=== PATIENT | female | born 1980 | race Caucasian/White ===

== ENCOUNTER 2020-02-14 15:31 | Emergency (ER) | payer MEDICAID ==
[~2020-02-14] VITALS: Ht 160 cm; Wt 81.8 kg
[~2020-02-14 15:31] MED LIST: HYDR-4383 PO; KETO10TA2 PO
[2020-02-14] MEDS ORDERED: TETanus/Pertussis (Acell)/Diphther VAC/PF (Tdap-Adult) 0.5ml syringe IMVAC ONE (17:15)
[2020-02-14] MEDS ORDERED: rabies vaccine (PCEC)/PF 2.5 unit kit IMVAC ONE (17:15)
[2020-02-14] MEDS ORDERED: rabies immune globulin/PF 150 unit/ml inj IMVAC ONE (17:15)
[2020-02-14] MEDS ORDERED: AMOX-580 PO (17:53)
[2020-02-14 18:41] VITALS: BP 110/60
== END 2020-02-14 18:10 | disposition home or self-care (01) ==
LOC: ER 15:31
DX: S61.431A Puncture wound without foreign body of right hand, initial encounter (principal); M79.601 Pain in right arm; K21.9 Gastro-esophageal reflux disease without esophagitis; Z98.890 Other specified postprocedural states; Z79.2 Long term (current) use of antibiotics; Z79.899 Other long term (current) drug therapy; W55.01XA Bitten by cat, initial encounter; Y93.89 Activity, other specified; Y92.89 Other specified places as the place of occurrence of the external cause; Y99.8 Other external cause status
CPT/HCPCS: 90375; 90471; 90472; 90675; 90715; 96372; 99284

== ENCOUNTER 2023-11-30 08:48 | Emergency (ER) | payer MEDICAID, OTHER ==
[~2023-11-30] VITALS: Ht 160 cm; Wt 87.5 kg
[~2023-11-30 08:48] MED LIST changes: +IBUP-1985 PO
[2023-11-30 09:19] LABS: BASOPHILS % (AUTO) 0.4 % (0-1); EOSINOPHILS # (AUTO) 0.1 X10'3 (0-0.9); EOSINOPHILS % (AUTO) 1.8 % (0-6); HEMATOCRIT 39.9 % (35.0-45.0); HEMOGLOBIN 13.3 g/dl (12.0-16.0); LYMPHOCYTES # (AUTO) 1.2 X10'3 (1.1-4.8); LYMPHOCYTES % (AUTO) 22.6 % (21-51); MEAN CORPUSCULAR HGB CONC 33.4 g/dL (33.0-36.5); MEAN CORPUSCULAR VOLUME 83.7 FL (78-98); MEAN PLATELET VOLUME 8.3 FL (7.4-10.4); MONOCYTES # (AUTO) 0.2 X10'3 (0-0.9); MONOCYTES % (AUTO) 4.5 % (2-12); NEUTROPHILS # (AUTO) 3.8 X10'3 (1.8-7.7); NEUTROPHILS % (AUTO) 70.7 % (42-75); PLATELET COUNT 190 X10'3 (140-440); RED BLOOD COUNT 4.77 X10'6 (4.20-5.60); RED CELL DISTRIBUTION WIDTH 13.6 % (11.5-14.5); WHITE BLOOD COUNT 5.4 X10'3 (4.5-11.0)
[2023-11-30 09:41] LABS: ALANINE AMINOTRANSFERASE 13 U/L (12-78); ALBUMIN 3.1 G/DL (3.4-5.0); ALBUMIN/GLOBULIN RATIO 0.9 (1.1-1.5); ALKALINE PHOSPHATASE 65 IU/L (46-116); ANION GAP 7 (8-16); ASPARTATE AMINO TRANSFERASE 14 U/L (10-37); BILIRUBIN,TOTAL 0.4 MG/DL (0.1-1.0); BLOOD UREA NITROGEN 11 MG/DL (7-18); BUN/CREATININE RATIO 12.8 (10.0-20.0); CALCIUM 8.1 MG/DL (8.5-10.1); CHLORIDE 105 MMOL/L (99-107); CREATININE 0.86 MG/DL (0.40-0.90); GLUCOSE 145 MG/DL (70-104); POTASSIUM 3.9 MMOL/L (3.5-5.1); SODIUM 139 MMOL/L (135-145); TOTAL CARBON DIOXIDE 27.5 MMOL/L (24-32); TOTAL PROTEIN 6.7 G/DL (6.4-8.2); eCRCL 70 ML/MIN; eGFR 72 ML/MIN
[2023-11-30 09:43] LABS: PRO BRAIN NATRIURETIC PEPTIDE 85 PG/ML (0-125)
[2023-11-30] MEDS ORDERED: VARE1TAB29 PO (14:22)
[2023-11-30 14:55] VITALS: BP 103/59; PULSE 48; RESP 16; TEMP 98; O2SAT 99
== END 2023-11-30 14:59 | disposition home or self-care (01) ==
LOC: ER 08:49
DX: R07.89 Other chest pain (principal); K21.9 Gastro-esophageal reflux disease without esophagitis; Z79.899 Other long term (current) drug therapy
CPT/HCPCS: 36415; 71045; 80053; 83880; 84484; 85025; 93005; 99285

== ENCOUNTER 2023-12-06 16:40 | Emergency (ER) | payer MEDICAID ==
[~2023-12-06] VITALS: Ht 160 cm; Wt 88.3 kg
[~2023-12-06 16:40] MED LIST changes: +VARE1TAB29 PO
[2023-12-06 17:00] VITALS: TEMP 97
[2023-12-06 17:21] VITALS: BP 97/67; PULSE 65; RESP 13; O2SAT 97
[2023-12-06 17:29] LABS: HEMOGLOBIN 12.6 g/dl (12.0-16.0); WHITE BLOOD COUNT 6.8 X10'3 (4.5-11.0)
[2023-12-06 17:34] LABS: BASOPHILS % (AUTO) 0.3 % (0-1); EOSINOPHILS # (AUTO) 0.1 X10'3 (0-0.9); EOSINOPHILS % (AUTO) 1.6 % (0-6); HEMATOCRIT 37.6 % (35.0-45.0); LYMPHOCYTES # (AUTO) 1.9 X10'3 (1.1-4.8); MEAN CORPUSCULAR HEMOGLOBIN 28.3 PG (27.0-31.0); MEAN CORPUSCULAR HGB CONC 33.6 g/dL (33.0-36.5); MEAN CORPUSCULAR VOLUME 84.1 FL (78-98); MEAN PLATELET VOLUME 8.6 FL (7.4-10.4); MONOCYTES # (AUTO) 0.3 X10'3 (0-0.9); MONOCYTES % (AUTO) 4.4 % (2-12); NEUTROPHILS # (AUTO) 4.5 X10'3 (1.8-7.7); NEUTROPHILS % (AUTO) 65.7 % (42-75); PLATELET COUNT 196 X10'3 (140-440); RED BLOOD COUNT 4.47 X10'6 (4.20-5.60)
[2023-12-06 17:54] LABS: ALANINE AMINOTRANSFERASE 18 U/L (12-78); ALBUMIN 3.3 G/DL (3.4-5.0); ALKALINE PHOSPHATASE 62 IU/L (46-116); ANION GAP 8 (8-16); ASPARTATE AMINO TRANSFERASE 14 U/L (10-37); BILIRUBIN,TOTAL 0.3 MG/DL (0.1-1.0); BLOOD UREA NITROGEN 13 MG/DL (7-18); BUN/CREATININE RATIO 17.8 (10.0-20.0); CALCIUM 8.4 MG/DL (8.5-10.1); CHLORIDE 104 MMOL/L (99-107); CREATININE 0.73 MG/DL (0.40-0.90); GLUCOSE 104 MG/DL (70-104); POTASSIUM 3.9 MMOL/L (3.5-5.1); SODIUM 139 MMOL/L (135-145); TOTAL CARBON DIOXIDE 27.1 MMOL/L (24-32); TOTAL PROTEIN 6.7 G/DL (6.4-8.2); eCRCL 82 ML/MIN; eGFR 87 ML/MIN
[2023-12-06 17:56] LABS: LIPASE 20 U/L (16-77); MAGNESIUM 1.9 MG/DL (1.5-2.4); PRO BRAIN NATRIURETIC PEPTIDE 42 PG/ML (0-125)
[2023-12-06 17:56] LABS: BILIRUBIN,URINE NEGATIVE (Neg); CLARITY,URINE SLIGHTLY CLOUDY (Clear); COLOR,URINE YELLOW (Yellow); GLUCOSE, URINE NEGATIVE (Neg); KETONES,URINE NEGATIVE (Neg); LEUKOCYTE ESTERASE ,URINE NEGATIVE (Neg); NITRITES, URINE NEGATIVE (Neg); OCCULT BLOOD,URINE SMALL (Neg); PROTEIN,URINE NEGATIVE (Neg); UROBILINOGEN,URINE 0.2 E.U/dL (0.2-1.0)
[2023-12-06 17:57] LABS: URINE HCG NEGATIVE (NEG)
[2023-12-06 18:09] LABS: UA COLLECTION TYPE CLN CATCH MIDSTREAM
[2023-12-06 18:10] LABS: RBC,URINE TNTC /HPF (0-2); SQUAMOUS EPITHELIAL CELL,UR MODERATE /LPF (FEW)
[2023-12-06 18:11] LABS: BACTERIA,URINE FEW /HPF (Neg); WBC,URINE 0-4 /HPF (0-4)
[2023-12-06 18:12] LABS: MUCUS STRANDS FEW /LPF (Neg)
[2023-12-06] MEDS ORDERED: ALBU8HFA INH (18:25)
[2023-12-06] MEDS ORDERED: CETI10CA PO (18:25)
== END 2023-12-06 18:32 | disposition home or self-care (01) ==
LOC: ER 16:41
DX: R07.89 Other chest pain (principal); K21.9 Gastro-esophageal reflux disease without esophagitis; Z79.899 Other long term (current) drug therapy; Z79.2 Long term (current) use of antibiotics; Z98.890 Other specified postprocedural states
CPT/HCPCS: 36415; 71045; 80053; 81001; 81025; 83690; 83735; 83880; 84484; 85025; 87210; 93005; 99285

== ENCOUNTER 2024-10-04 13:32 | Emergency (ER) | payer BC, MEDICAID ==
[~2024-10-04] VITALS: Ht 160 cm; Wt 87.4 kg
[~2024-10-04 13:32] MED LIST changes: +CETI10CA PO
[2024-10-04 13:39] VITALS: BP 118/46; PULSE 98; RESP 16; TEMP 98.5; O2SAT 98
[2024-10-04 14:10] LABS: BILIRUBIN,URINE NEGATIVE (Neg); CLARITY,URINE SLIGHTLY CLOUDY (Clear); COLOR,URINE YELLOW (Yellow); GLUCOSE, URINE NEGATIVE (Neg); KETONES,URINE NEGATIVE (Neg); LEUKOCYTE ESTERASE ,URINE NEGATIVE (Neg); NITRITES, URINE POSITIVE (Neg); OCCULT BLOOD,URINE NEGATIVE (Neg); PROTEIN,URINE NEGATIVE (Neg); UROBILINOGEN,URINE 0.2 E.U/dL (0.2-1.0)
[2024-10-04 14:13] LABS: URINE HCG NEGATIVE (NEG)
[2024-10-04 14:26] LABS: UA COLLECTION TYPE CLN CATCH MIDSTREAM
[2024-10-04 14:27] LABS: BACTERIA,URINE 1+ /HPF (Neg); MUCUS STRANDS FEW /LPF (Neg); RBC,URINE NONE SEEN /HPF (0-2); SQUAMOUS EPITHELIAL CELL,UR MODERATE /LPF (FEW); WBC,URINE NONE SEEN /HPF (0-4)
[2024-10-04 14:43] LABS: BASOPHILS % (AUTO) 0.2 % (0-1); EOSINOPHILS % (AUTO) 1.2 % (0-6); HEMATOCRIT 37.6 % (35.0-45.0); HEMOGLOBIN 12.6 g/dl (12.0-16.0); LYMPHOCYTES # (AUTO) 0.3 X10'3 (1.1-4.8); LYMPHOCYTES % (AUTO) 8.4 % (21-51); MEAN CORPUSCULAR HEMOGLOBIN 28.2 PG (27.0-31.0); MEAN CORPUSCULAR HGB CONC 33.5 g/dL (33.0-36.5); MEAN CORPUSCULAR VOLUME 84.1 FL (78-98); MEAN PLATELET VOLUME 8.5 FL (7.4-10.4); MONOCYTES # (AUTO) 0.2 X10'3 (0-0.9); MONOCYTES % (AUTO) 5.1 % (2-12); NEUTROPHILS # (AUTO) 3.2 X10'3 (1.8-7.7); NEUTROPHILS % (AUTO) 85.1 % (42-75); PLATELET COUNT 118 X10'3 (140-440); RED BLOOD COUNT 4.47 X10'6 (4.20-5.60); RED CELL DISTRIBUTION WIDTH 13.9 % (11.5-14.5); WHITE BLOOD COUNT 3.7 X10'3 (4.5-11.0)
[2024-10-04 14:50] LABS: HCG SERUM QL NEGATIVE
[2024-10-04 14:55] LABS: ALANINE AMINOTRANSFERASE 19 U/L (12-78); ALBUMIN 3.8 G/DL (3.4-5.0); ALBUMIN/GLOBULIN RATIO 1.4 (1.1-1.5); ALKALINE PHOSPHATASE 64 IU/L (46-116); ANION GAP 5 (8-16); ASPARTATE AMINO TRANSFERASE 12 U/L (10-37); BILIRUBIN,TOTAL 0.4 MG/DL (0.1-1.0); BLOOD UREA NITROGEN 13 MG/DL (7-18); BUN/CREATININE RATIO 19.1 (10.0-20.0); CALCIUM 8.3 MG/DL (8.5-10.1); CHLORIDE 107 MMOL/L (99-107); CREATININE 0.68 MG/DL (0.40-0.90); GLUCOSE 144 MG/DL (70-104); LIPASE 18 U/L (16-77); POTASSIUM 4.1 MMOL/L (3.5-5.1); SODIUM 143 MMOL/L (135-145); TOTAL CARBON DIOXIDE 30.6 MMOL/L (24-32); TOTAL PROTEIN 6.5 G/DL (6.4-8.2); eCRCL 87 ML/MIN; eGFR > 90 ML/MIN
[2024-10-04] MEDS ORDERED: LIDO700A32 TOP (16:14)
[2024-10-04] MEDS ORDERED: NITR100C6 PO (16:14)
[2024-10-04] MEDS ORDERED: CYCL-1 PO (16:14)
[2024-10-04] MEDS: ketorolac trometh 30MG/ML vial 30 MG/ML VIAL IM ONE (16:31)
[2024-10-04] MEDS: dexamethasone sod phosphate 10mg/ml inj IM STA (16:31)
== END 2024-10-04 16:39 | disposition home or self-care (01) ==
LOC: ER 13:33
DX: N39.0 Urinary tract infection, site not specified (principal); K21.9 Gastro-esophageal reflux disease without esophagitis; Z79.1 Long term (current) use of non-steroidal anti-inflammatories (NSAID); Z79.899 Other long term (current) drug therapy; Z98.890 Other specified postprocedural states
CPT/HCPCS: 36415; 74176; 80053; 81001; 81025; 83690; 84703; 85025; 87088; 96372; 99285; J1100; J1885

== ENCOUNTER 2025-03-27 07:46 | Emergency (ER) | payer BC, MEDICAID ==
[~2025-03-27] VITALS: Ht 160 cm; Wt 86.0 kg
[~2025-03-27 07:46] MED LIST changes: +CYCL-1 PO; -IBUP-1985 PO; +IBUP600T52 PO; +LIDO-52 TOP; +NITR100C6 PO
--- NOTE | 2025-03-27 08:42 | Physician Documentation ---
HPI ~ General Chief Complaint: Tooth Problem Stated Complaint: INFECTED TOOTH Time Seen by MD: 08:42 Primary Medical Doctor: loli trevino History of Present Illness HPI Comment 45-year-old female with a history of dental issues, is currently seeing a dentist but does not have another appointment until May. She presents due to complaints of left upper dental pain with facial swelling. No chills or fever, but does feel overall unwell. Medication Reconciliation Allergies: Coded Allergies: No Known Allergies (Unverified , 02/03/10) Scheduled Amox Tr/Potassium Clavulanate 875/125 MG (Augmentin 875/125 MG), 1 TAB PO Q12H Cetirizine Hcl (Zyrtec), 1 CAP PO DAILY Cyclobenzaprine* (Cyclobenzaprine*), 1 TAB PO HS Hydrocodone/Acetaminophen ([place] 5-325 Tablet), 1 TAB PO TID PRN Ibuprofen (Ibuprofen), 1 TAB PO Q8H Ketorolac Tromethamine (Ketorolac Tromethamine), 1 TAB PO Q6H PRN Lidocaine (Lidoderm), 1 PATCH TOP DAILY Naproxen (Naproxen), 1 TAB PO Q12H Nitrofurantoin Monohyd/M-Cryst (Macrobid 100 mg Capsule), 1 CAP PO Q12H Varenicline Tartrate (Varenicline), 0.5 MG PO BID Scheduled PRN Hydrocodone Bit/Acetaminophen (Hydrocodon-Acetaminophen 5-325), 1 TAB PO TID PRN PRN for pain Past Medical History Past Medical History: GERD Past Surgical History: Alcohol Use: None Drug Use: none Lives with: Family Lives In: Home Occupation: employed Review of Systems ROS As stated above in the HPI, otherwise all systems are reviewed and negative. Physical Exam Vital Signs: Temperature: 98.4, Source: Temporal, Heart Rate: 78, Respiratory Rate: 16, BP: 131/80, Pulse Oximetry: 98, Weight: 86.000 Oxygen Flow Rate: 0 Physical Exam General: Alert, no apparent distress. HEENT: PERRL, EOMI, no injection, moist mucous membranes. Poor dentition. Left upper incisor is cracked with surround erythema. No abscess. She also has a cracked left molar about jail back with surrounding erythema. No abscess. No trismus. Uvula visible midline. Facial erythema noted. Neck: Full range of motion. Respiratory: Lungs clear, no respiratory distress. Chest: No accessory muscle use. Cardiovascular: Regular rate and rhythm, no murmurs. Gastrointestinal: Soft, nontender, nondistended. Bowels sounds present. Extremities: Normal range of motion, no deformity. Neurologic: Oriented x4. Psychiatric: Normal mood and affect. Skin: Normal color, warm and dry. No edema, no ecchymosis. Progress Results/Orders Results/Orders Completed Orders - MAIKOL BECKHAM NP Ketorolac Trometh 30mg/Ml Vial (Toradol (03/27/25 09:10) Amox Tr/Potassium Clavulanate (Augmentin (03/27/25 09:35) Vital Signs 03/27/25 07:51 Temp 98.4 Pulse 78 Resp 16 B/P (MAP) 131/80 Pulse Ox 98 O2 Flow Rate 0 Medical Decision Making Differential Dx:Considerations: Include: Alveolar fracture, Alveolar osteitis, ANUG, Facial Cellulitis, Periapical abscess, Peridontal abscess, Post-extraction bleeding, Pulpitis, Tooth avulsion, Tooth eruption, Tooth Fracture, Trigeminal neuralgia, Tooth subluxation Additional Comment No fever, no chills. No signs of sepsis. No tachycardia. She does have significant left upper facial swelling, but no trismus. Discussed with patient the need to return if not at all improved tomorrow. Discussed that it is likely that the antibiotics will make a significant difference. She should also follow up with her dentist. She was given Toradol 30 mg IM in the emergency department, and will be sent home with Augmentin. Departure Time of Disposition: 09: Disposition: 01 HOME / SELF CARE / HOMELESS Impression: Primary Impression: Toothache Additional Impression: Disturbances in tooth eruption Condition: Stable Discharge Instructions: Dental Caries, Adult, Dental Pain Additional Instructions: If you are not at all improved tomorrow, or if you are worse at any time such as with fever over 101, shaking chills, nausea and vomiting, you need to return immediately. Otherwise, complete the course of antibiotics as prescribed. Use the naproxen for pain. [place] the hydrocodone for severe pain, and do not take it while you are working. No driving x6 hours after the hydrocodone. See your dentist as soon as possible. Departure Forms: Excuse form Work or School Excused From: Work Excuse beginning now through the following date: Mar 30, 2025 Referrals: NO PRIMARY CARE PROVIDER (PCP) Prescriptions Hydrocodone Bit/Acetaminophen (Hydrocodon-Acetaminophen 5-325) 5 Mg-325 Mg Tablet 1 TAB PO TID PRN PRN for pain for 3 Days, #9 TAB Prov: MAIKOL BECKHAM NP 03/27/25 Naproxen (Naproxen) 500 Mg Tablet 1 TAB PO Q12H, #20 TAB Prov: MAIKOL BECKHAM NP 03/27/25 Amox Tr/Potassium Clavulanate 875/125 MG (Augmentin 875/125 MG) 875 Mg-125 Mg Tablet 1 TAB PO Q12H for 10 Days, #20 TAB Prov: MAIKOL BECKHAM NP 03/27/25 Education Educated: Patient Educated regarding: diagnosis, treatment, prognosis, need for follow up Signature Scribe Signature: x Attestation: The note accurately reflects work and decisions made by me.Maikol Chin NP 03/27/25 09:41 MAIKOL BECKHAM NP Mar 27, 2025 08:42
[2025-03-27] MEDS ORDERED: AMOX-580 PO (09:04)
[2025-03-27] MEDS ORDERED: NAPR-56 PO (09:05)
[2025-03-27] MEDS ORDERED: HYDR-3964 PO (09:05)
[2025-03-27] MEDS: ketorolac trometh 30MG/ML vial 30 MG/ML VIAL IM ONE (09:43)
[2025-03-27] MEDS: amox tr/potassium clavulanate 875/125mg TAB PO ONE (09:43)
[2025-03-27 10:03] VITALS: BP 127/78; PULSE 66; RESP 16; TEMP 98.4; O2SAT 100
[2025-03-28] MEDS ORDERED: RIFA300C65 PO (09:42)
== END 2025-03-27 10:00 | disposition home or self-care (01) ==
LOC: ER 07:47
DX: K04.7 Periapical abscess without sinus (principal); K00.6 Disturbances in tooth eruption; K21.9 Gastro-esophageal reflux disease without esophagitis; Z79.899 Other long term (current) drug therapy
CPT/HCPCS: 96372; 99283; J1885

== ENCOUNTER 2025-03-27 23:31 | Emergency (ER) | payer MEDICAID ==
[~2025-03-27] VITALS: Ht 160 cm; Wt 73.7 kg
[~2025-03-27 23:31] MED LIST changes: +AMOX-580 PO; +HYDR-3964 PO; +NAPR-56 PO
[2025-03-28] MEDS: ketorolac trometh 30MG/ML vial 30 MG/ML VIAL IM ONE (02:36)
[2025-03-28 03:00] VITALS: TEMP 98.2
[2025-03-28 03:09] LABS: MEAN PLATELET VOLUME 8.3 FL (7.4-10.4); RED CELL DISTRIBUTION WIDTH 14.1 % (11.5-14.5)
[2025-03-28 03:20] LABS: CREATININE 0.67 MG/DL (0.40-0.90); TOTAL CARBON DIOXIDE 29.5 MMOL/L (24-32); eCRCL 88 ML/MIN; eGFR > 90 ML/MIN
--- NOTE | 2025-03-28 05:17 | Physician Documentation ---
HPI ~ General Chief Complaint: Tooth Problem Stated Complaint: DENTAL ABSCESS Time Seen by MD: 01:17 OK to notify your PCP?: Yes Primary Medical Doctor: loli trevino Source: patient Mode of Arrival: POV, Ambulatory Exam Limitations: no limitations History of Present Illness HPI Comment Dental pain and swelling for several days despite antibiotics. +headache, +fever and chills. Medication Reconciliation Allergies: Coded Allergies: No Known Allergies (Unverified , 03/27/25) Scheduled Amox Tr/Potassium Clavulanate 875/125 MG (Augmentin 875/125 MG), 1 TAB PO Q12H Cetirizine Hcl (Zyrtec), 1 CAP PO DAILY Cyclobenzaprine* (Cyclobenzaprine*), 1 TAB PO HS Hydrocodone/Acetaminophen ([place] 5-325 Tablet), 1 TAB PO TID PRN Ibuprofen (Ibuprofen), 1 TAB PO Q8H Ketorolac Tromethamine (Ketorolac Tromethamine), 1 TAB PO Q6H PRN Lidocaine (Lidoderm), 1 PATCH TOP DAILY Naproxen (Naproxen), 1 TAB PO Q12H Nitrofurantoin Monohyd/M-Cryst (Macrobid 100 mg Capsule), 1 CAP PO Q12H Varenicline Tartrate (Varenicline), 0.5 MG PO BID Scheduled PRN Hydrocodone Bit/Acetaminophen (Hydrocodon-Acetaminophen 5-325), 1 TAB PO TID PRN PRN for pain Past Medical History Past Medical History: GERD Past Surgical History: Alcohol Use: None Drug Use: none Lives with: Family Lives In: Home Occupation: employed Review of Systems All Other Systems at this time: Reviewed and Negative Physical Exam Vital Signs: RN Vital Signs have been reviewed: Yes, Temperature: 98.2, Source: Oral, Heart Rate: 66, Respiratory Rate: 15, BP: 93/53, Pulse Oximetry: 99, Weight: 73.700 Physical Exam HEENT: PERRL, moist oral mucosa, EOMI; L facial swelling including L periorbital area Pulmonary: No respiratory distress MSK: no deformity Skin: w/d/i, no rash Neuro: alert, nonfocal Psych: normal affect Progress Results/Orders Reviewed/noted all lab results: Yes Results/Orders Completed Orders - DARREN MCFARLAND MD Dexamethasone Tablet (Decadron Tablet) (03/28/25 06:55) Rifampin Capsule (Rifampin Capsule) (03/28/25 09:15) Magnesium Oxide Tablet (Mag-Ox 400mg Tab (03/28/25 09:15) Potassium Cl Sr Tablet (K-Dur Tablet) (03/28/25 09:15) Rifampin Capsule (Rifampin Capsule) (03/28/25 09:15) Medications Received in ER Medications (Trade) Dose Ordered Sig/Briana Route PRN Reason Start Time Stop Time Status Last Admin Dose Admin (Toradol inj. 30mg/ml) 30 mg ONCE ONCE IM 03/28/25 02:30 03/28/25 02:31 DC 03/28/25 02:36 30 MG (Cleocin capsule) 300 mg ONCE ONCE PO 03/28/25 04:05 03/28/25 04:06 DC 03/28/25 05:30 300 MG (Decadron tablet) 12 mg ONCE ONCE PO 03/28/25 06:55 03/28/25 06:56 DC 03/28/25 07:10 12 MG Vital Signs 03/27/25 03/28/25 03/28/25 03/28/25 23:51 01:13 02:36 03:00 Temp 97.3 98.2 Pulse 77 63 Resp 15 16 14 16 B/P (MAP) 136/71 105/62 (76) Pulse Ox 96 99 03/28/25 03/28/25 03/28/25 03:30 04:00 06:16 Pulse 66 67 Resp 14 15 17 B/P (MAP) 93/53 (66) 113/82 (92) Pulse Ox 99 99 O2 Flow Rate 0 Laboratory Tests Test 03/28/25 02:59 White Blood Count 7.2 Red Blood Count 3.98 L Hemoglobin 11.4 L Hematocrit 33.2 L Mean Corpuscular Volume 83.5 Mean Corpuscular Hemoglobin 28.7 Mean Corpuscular Hemoglobin Concent 34.4 Red Cell Distribution Width 14.1 Platelet Count 152 Mean Platelet Volume 8.3 Neutrophils (%) (Auto) 72.8 Lymphocytes (%) (Auto) 20.4 L Monocytes (%) (Auto) 5.0 Eosinophils (%) (Auto) 1.6 Basophils (%) (Auto) 0.2 Neutrophils # (Auto) 5.2 Lymphocytes # (Auto) 1.5 Monocytes # (Auto) 0.4 Eosinophils # (Auto) 0.1 Basophils # (Auto) 0.0 CBC Comment Sodium Level 140 Potassium Level 3.1 L Chloride Level 104 Carbon Dioxide Level 29.5 Anion Gap 7 L Blood Urea Nitrogen 8 Creatinine 0.67 Estimated GFR/1.73 m2 > 90 BUN/Creatinine Ratio 11.9 Glucose Level 116 H Calcium Level 8.6 Total Bilirubin 0.9 Aspartate Amino Transf (AST/SGOT) 15 Alanine Aminotransferase (ALT/SGPT) 16 Alkaline Phosphatase 58 Total Protein 6.4 Albumin 3.4 Globulin 3.0 Albumin/Globulin Ratio 1.1 Chemistry Comments Re-Evaluation Re-Evaluation : Re-Evaluation: Improved Progress Patient was seen and examined. Patient is given reassurance. Patient was found to have some associated facial cellulitis. Patient has not antibiotic prescription. Patient was given some steroids for the swelling encouraged to follow up with a dentist no change in plan encouraged to return if they have difficulty swallowing or any other complaints with her airway. Patient was then discharged home. As far as the cellulitis rifampin was added to help with the patient. EKG/XRAY/CT/US/VASC/MRI CT : Interpreted By: both With Contrast?: Yes Impression CT CT FACIAL BONES/SOFT TISSUE W/ IV CONTRAST INDICATION: facial swelling EXAM DATE: 03/28/2025 07:32 AM COMPARISON: None RADIATION DOSE: CTDIvol: 54 mGy, DLP: 1093 mGy*cm PROCEDURE: Using the CT scanner, contiguous noncontrast scans were obtained from above the orbital rims to below the mandible. Coronal and sagittal reformatted images were then generated. All CT scans at this medical facility are performed using dose modulation techniques as appropriate to a performed exam including the following: Automated exposure control was utilized; adjustment of the MA and/or KV according to patient size; and use of iterative reconstruction technique. FINDINGS: Left mandible/malar soft tissue fat stranding could be cellulitis. The facial bones, including the orbits and paranasal sinuses are intact without evidence of fracture. The paranasal sinuses, mastoid air cells and middle ear cavities are normally aerated. The orbital contents are normal. IMPRESSION: Left mandible/malar soft tissue fat stranding could be cellulitis. Medical Decision Making Findings 45 year old female with apparent dental abscess, already on antibiotics. Labs, CT face pending, will sign out to oncoming ER physician for disposition. Additional Comment Ddx = dental abscess, sinusitis, meningitis, cellulitis Departure Disposition: HOME / SELF CARE / HOMELESS Impression: Primary Impression: Dental abscess Additional Impression: Facial cellulitis Condition: Stable Discharge Instructions: Dental Abscess Referrals: NO PRIMARY CARE PROVIDER (PCP) Education Educated: Patient Educated regarding: diagnosis, treatment, prognosis, need for follow up Signature Scribe Signature: . Attestation: The note accurately reflects work and decisions made by me.Darren Mcfarland MD 03/28/25 09:22 . JOESPH SUAREZ MD Mar 28, 2025 05:17 DARREN MCFARLAND MD Mar 28, 2025 08:48
[2025-03-28] MEDS ORDERED: iohexol 300mg/ml 100ml inj. ONE (06:35)
--- NOTE | 2025-03-28 08:33 | RADIOLOGY REPORT ---
CT CT FACIAL BONES/SOFT TISSUE W/ IV CONTRAST INDICATION: facial swelling EXAM DATE: 03/28/2025 07:32 AM COMPARISON: None RADIATION DOSE: CTDIvol: 54 mGy, DLP: 1093 mGy*cm PROCEDURE: Using the CT scanner, contiguous noncontrast scans were obtained from above the orbital ri ms to below the mandible. Coronal and sagittal reformatted images were then generated. All CT scans at this medical facility are performed using dose modulation techniques as appropriate t o a performed exam including the following: Automated exposure control was utilized; adjustment of th e MA and/or KV according to patient size; and use of iterative reconstruction technique. FINDINGS: Left mandible/malar soft tissue fat stranding could be cellulitis. The facial bones, includ ing the orbits and paranasal sinuses are intact without evidence of fracture. The paranasal sinuses, mastoid air cells and middle ear cavities are normally aerated. The orbital contents are normal. IMPRESSION: Left mandible/malar soft tissue fat stranding could be cellulitis.
[2025-03-28] MEDS: potassium Cl 20 mEq SR tablet PO ONE (09:28)
[2025-03-28 09:36] VITALS: BP 117/72; PULSE 64; RESP 17; O2SAT 99
[2025-03-28] MEDS ORDERED: RIFA300C65 PO (09:42)
== END 2025-03-28 09:47 | disposition home or self-care (01) ==
LOC: ER 23:32
DX: K04.7 Periapical abscess without sinus (principal); L03.211 Cellulitis of face
CPT/HCPCS: 36415; 70487; 80053; 85025; 96372; 99285; J1885; Q9967